=== PATIENT | female | born 1975 | race Caucasian/White ===

== ENCOUNTER 2016-11-18 19:59 | Emergency (ER) | payer OTHER ==
[~2016-11-18 19:59] MED LIST: AMOXICILLIN500 MG PO; BIAXIN500 MG PO; MOTRIN600 MG PO; PREVACID30 MG PO; TYLENOL325 M1 PO
== END 2016-11-18 20:17 | disposition left against medical advice (07) ==
LOC: ER 19:59
DX: Z53.21 Procedure and treatment not carried out due to patient leaving prior to being seen by health care provider (principal)
CPT/HCPCS: 99211